=== PATIENT | male | born 1945 | race Caucasian/White ===

== ENCOUNTER → 2017-06-15 | Outpatient (CLI) | payer OTHER | LOC: FIMAGING 15:02 | PROVIDERS: ATTEND Pain Medicine Interventional Pain Medicine | DX: M51.37 Other intervertebral disc degeneration, lumbosacral region (principal); M48.061 Spinal stenosis, lumbar region without neurogenic claudication ==

== ENCOUNTER → 2017-08-10 | Outpatient (CLI) | payer OTHER | LOC: CIMAGING 12:49 | PROVIDERS: ATTEND Pain Medicine Interventional Pain Medicine | DX: M25.552 Pain in left hip (principal); M16.12 Unilateral primary osteoarthritis, left hip; G89.4 Chronic pain syndrome; Z79.891 Long term (current) use of opiate analgesic; Z85.528 Personal history of other malignant neoplasm of kidney; Z96.641 Presence of right artificial hip joint | CPT/HCPCS: 73521-PO ==

== ENCOUNTER → 2017-10-18 | Outpatient (CLI) | payer OTHER | LOC: FIMAGING 08:42 | PROVIDERS: ATTEND Pain Medicine Interventional Pain Medicine | DX: M25.861 Other specified joint disorders, right knee (principal); M25.862 Other specified joint disorders, left knee; M16.9 Osteoarthritis of hip, unspecified; I10 Essential (primary) hypertension; G47.10 Hypersomnia, unspecified; G89.4 Chronic pain syndrome; N50.9 Disorder of male genital organs, unspecified; M96.1 Postlaminectomy syndrome, not elsewhere classified; F11.20 Opioid dependence, uncomplicated; M48.061 Spinal stenosis, lumbar region without neurogenic claudication; M12.9 Arthropathy, unspecified; M51.37 Other intervertebral disc degeneration, lumbosacral region; G47.30 Sleep apnea, unspecified; Z96.641 Presence of right artificial hip joint; Z79.891 Long term (current) use of opiate analgesic ==

== ENCOUNTER 2018-01-12 18:25 | Emergency (ER) | payer OTHER ==
--- NOTE | 2018-01-12 18:52 | CPEKG ---
Heart Rate: 83 RR Interval: 723 P-R Interval: 268 QRSD Interval: 152 QT Interval: 388 QTC Interval: 456 P [place]: 243 QRS [place]: -99 T Wave [place]: 68 EKG Severity - ABNORMAL ECG - EKG Impression: SINUS OR ECTOPIC ATRIAL RHYTHM EKG Impression: VENTRICULAR TRIGEMINY EKG Impression: FIRST DEGREE AV BLOCK EKG Impression: RBBB AND LAFB Electronically Signed By: Saira Ross 12-Jan-2018 23:01:39
--- NOTE | 2018-01-12 19:32 | EDPHY ---
H & P Stated Complaint: FALL WEDNESDAY R LOW BACK AND SCIATIC PAIN Time Seen by Provider: 01/12/18 18:48 HPI/ROS: CHIEF COMPLAINT: Right-sided back pain HISTORY OF PRESENT ILLNESS: 72-year-old male presents after a fall with right- sided back pain. 2 nights ago he got out of bed to go to the bathroom. His left foot was numb transiently and he tripped and fell forward, striking his right side on an object. Since then he has had right-sided lower back pain. The pain is mild to moderate and increases with change in position and bending over. He also injured his left ankle. He saw a physical therapist for his left ankle today and had it taped. No pain in his left ankle now. Denies rapid heart rate, dizziness, chest pain, abdominal pain, shortness of breath. REVIEW OF SYSTEMS: complete 10 point ROS negative except at noted in the HPI - Personal History Current Tetanus/Diphtheria Vaccine: Yes - Medical/Surgical History Hx Asthma: No Hx Chronic Respiratory Disease: Yes Hx Diabetes: No Hx Cardiac Disease: Yes Hx Renal Disease: Yes Hx Cirrhosis: No Hx Alcoholism: No Hx HIV/AIDS: No Hx Splenectomy or Spleen Trauma: Yes Other PMH: right nephrectomy, BACK SURG, COPD, CARDIAC STENTS - Social History Smoking Status: Former smoker Drug Use: None - Physical Exam Exam: General Appearance: Alert, pleasant Eyes: Pupils equal and round, no conjunctival pallor or injection ENT, Mouth: Mucous membranes moist Neck: Normal inspection Respiratory: Lungs are clear to auscultation Cardiovascular: Regular rate and rhythm Gastrointestinal: Abdomen is soft and nontender Back: Point tenderness over the right upper lumbar paraspinous area, ecchymosis over the right lower posterior ribs Neurological: A&O, nonfocal, normal gait Skin: Warm and dry Extremities: Normal inspection, tape on the left ankle and calf Psychiatric: Mood and affect normal Constitutional: Initial Vital Signs Temperature (C) 36.5 C 01/12/18 18:38 Heart Rate 146 H 01/12/18 18:38 Respiratory Rate 20 01/12/18 18:38 Blood Pressure 97/84 H 18 18:38 O2 Sat (%) 95 01/12/18 18:38 O2 Delivery Mode Room Air Allergies/Adverse Reactions: atorvastatin calcium [From Lipitor] Allergy (Mild, Verified 01/12/18 18:37) Home Medications: Medication Instructions Recorded Aspirin [Aspirin 81mg (*)] 81 mg PO DAILY 07/02/12 Furosemide [Lasix 20 MG (*)] 20 mg PO DAILY 07/02/12 Levothyroxine [Synthroid 100 mcg 100 mcg PO DAILY06 07/02/12 (*)] Lisinopril [Zestril 10 mg (*)] 10 mg PO DAILY 07/02/12 Rosuvastatin Calcium [Crestor] 5 mg PO DAILY 07/02/12 Potassium Chloride [K-Tab ER] 10 meq PO MOWEFR #0 07/07/12 oxyCODONE IR [Oxycodone Ir (*)] 10 - 20 mg PO Q3 PRN #0 tab 07/07/12 Lisinopril 02/07/16 MORPHINE SULFATE 30 mg PO Q8 02/07/16 Medical Decision Making - Diagnostics EKG Interpretation: EKG interpreted by me reveals first-degree AV block, rate 83, right bundle branch block, PVCs. Imaging Results: Chest X-Ray 01/12/18 19:28 Impression: No active cardiopulmonary disease seen. Lumbar Spine X-Ray 01/12/18 19:28 Impression: 1. No change in degenerative disk disease involving the lumbar spine with hypertrophic osteophytes and moderate facet hypertrophy. 2. No change in anterior subluxation of L4 on L5. Imaging: I viewed and interpreted images myself ED Course/Re-evaluation: Initial VS noted. Prompt repeat VS unremarkable. Obs in ED x 3 hrs, VS stable. ?validity of initial VS vs dysrhythmia. EKG reveals RBBB. Patient states he was asymptomatic in triage, which leads me to suspect that the initial vital signs were invalid. However, could be secondary to transient dysrhythmia. He has no symptoms related to acute cardiopulmonary etiology or severe injury such as intra-abdominal hemorrhage. He understands my concern and will return for dizziness, fainting, chest pain, shortness of breath or any new concerns. X-rays revealed no evidence of fracture or pneumothorax. Clinical presentation consistent with muscular strain/contusion. He ambulated throughout the emergency department with a steady gait. He is on chronic narcotics and will take pain medicine as needed at home. Safe and stable for discharge home. Warning signs discussed. Differential Diagnosis: Differential diagnosis includes though it is not limited to fracture, intracranial hemorrhage, pneumothorax, hemothorax, intra-abdominal hemorrhage. - Data Points Laboratory Results: Laboratory Results 01/12/18 19:50 01/12/18 19:50 Medications Given: Discontinued Medications Miscellaneous Medication (Icy Hot Lidocaine/Menthol 4%/1% Patch) 1 patch TD EDNOW ONE Stop: 01/12/18 21:36 Last Admin: 01/12/18 21:38 Dose: 1 patch Departure - Departure Disposition: Home, Routine, Self-Care Clinical Impression: Low back strain Qualifiers: Encounter type: initial encounter Qualified Code(s): S39.012A - Strain of muscle, fascia and tendon of lower back, initial encounter Condition: Good Instructions: Low Back Strain (ED) Additional Instructions: Use a lidocaine patch as directed. Referrals: Jose Quintero, DO [Primary Care Provider] - 3-4 days, if not improved
[2018-01-12 20:13] LABS: PLATELET COUNT 145 10^3/uL (150-400)
[2018-01-12] MEDS ORDERED: LIDOCAINE 4%/MENTHOL 1% PATCH TD ONE (21:35)
[2018-01-12 21:43] VITALS: BP 108/77
[2018-01-13] MEDS ORDERED: PATCH REMOVAL 1 EA PATCH TD SCH (21:00)
== END 2018-01-12 21:41 | disposition home or self-care (01) ==
DX: S39.012A Strain of muscle, fascia and tendon of lower back, initial encounter (principal); J44.9 Chronic obstructive pulmonary disease, unspecified; Z79.82 Long term (current) use of aspirin; Z87.891 Personal history of nicotine dependence; W01.198A Fall on same level from slipping, tripping and stumbling with subsequent striking against other object, initial encounter

== ENCOUNTER → 2018-06-02 | Outpatient (CLI) | payer OTHER | LOC: FIMAGING 15:32 | PROVIDERS: ATTEND Family Medicine | DX: M17.12 Unilateral primary osteoarthritis, left knee (principal); M16.12 Unilateral primary osteoarthritis, left hip ==

== ENCOUNTER 2018-12-01 18:29 | Emergency (ER) | payer OTHER ==
--- NOTE | 2018-12-01 19:53 | EDPHY ---
General Time Seen by Provider: 12/01/18 18:46 Narrative: CLINICAL IMPRESSION: Left hip pain ASSESSMENT/PLAN: 73-year-old male presents to the emergency department 4 days after falling on his left hip with complaints of persistent pain. Patient tripped on a wire in his home, was able to get himself up and has been ambulating with a cane. He has had prior bilateral hip replacements performed by an orthopedic surgeon in [place] and was unable to get an appointment there. He did also strike his right knee but complains of no pain. X-rays of the left hip interpreted by myself with no obvious fracture or hardware displacement. No open wounds, contusion, and distal neurovascular exam is intact. No complaints of left femur or knee pain and exam findings are reassuring. Patient was advised to follow up with his primary orthopedic provider. Warning signs return to ED sooner discussed in discharge. DIFFERENTIAL DX: Differential includes but not limited to acute fracture, strain/sprain, joint dislocation, soft tissue contusion ED COURSE: 7:45 p.m.: Preliminary review of x-rays by myself shows no obvious fracture or hardware displacement. Patient has been ambulatory on the leg without pain. His primary surgeon is in [place]. Will plan for outpatient follow-up. CHIEF COMPLAINT: Left hip pain HPI: 73-year-old male presents to the emergency department 4 days after a ground level fall to the left hip. Patient reports he tripped on a cord in his home causing him to land on his right knee and left hip. He did not hit his head or have loss of consciousness. He was able to get up and has been ambulatory using a cane. He reports a history of bilateral hip replacements, the most recent being the left hip. This was performed by an orthopedic surgeon in [place]. He reports no buttock pain, upper leg pain, knee pain or ankle pain. He has an abrasion to the right knee but reports no difficulty with movement and no pain with ambulation. He is here requesting an x-ray to make sure he did not break anything. PAST MEDICAL HISTORY: See nurse triage note Pertinent Past Surgical History: Bilateral hip replacements Social History: See nurse triage REVIEW OF SYSTEMS: All other systems negative Constitutional: No fever, no chills Musculoskeletal: No deformity, + joint pain Skin: No rashes, color change or open wounds. Neurological: No sensory loss or weakness. PHYSICAL EXAM: General Appearance: Alert, oriented, obese, appropriate for age, cooperative, NAD, well hydrated, non-toxic appearing, mildly hypertensive no hypoxia. Neurological: Alert and oriented x 3, normal sensation and strength of extremities Skin: Warm, dry, no rashes, no nodules on palpation. Musculoskeletal: Mild reproducible pain along the anterior aspect of the left hip. No contusion or swelling. No incision site redness or dehiscence. No pain to palpation over the greater trochanter or ischium. No pain along the left femur, knee, tib-fib or ankle. Distal neurovascular exam is intact. No pain with internal or external rotation of the hip and patient is ambulatory with a cane. MEDICAL DECISION MAKING: Patient was seen independently. Secondary supervising physician at time of evaluation was Arminda Ross. Diagnosis: Left hip pain. New, requires workup Summary: See assessment and plan for summary of ED visit Independent visualization of images, tracing, or specimens yes. Patient Progress: Stable for discharge. - Diagnostics Imaging Results: Imaging Impressions Hip X-Ray 12/01/18 18:42 Impression: Anatomic alignment of bilateral hip arthroplasties, with no evidence of hardware failure or acute osseous abnormality. - History Smoking Status: Former smoker - Objective Vital Signs: Initial Vital Signs Temperature (C) 36.7 C 12/01/18 18:40 Heart Rate 71 12/01/18 18:40 Respiratory Rate 16 12/01/18 18:40 Blood Pressure 136/84 H 12/01/18 18:40 O2 Sat (%) 96 12/01/18 18:40 O2 Delivery Mode Room Air Allergies/Adverse Reactions: atorvastatin calcium [From Lipitor] Allergy (Mild, Verified 12/01/18 18:39) Home Medications: Medication Instructions Recorded Aspirin [Aspirin 81mg (*)] 81 mg PO DAILY 07/02/12 Furosemide [Lasix 20 MG (*)] 20 mg PO DAILY 07/02/12 Levothyroxine [Synthroid 100 mcg 100 mcg PO DAILY06 07/02/12 (*)] Lisinopril [Zestril 10 mg (*)] 10 mg PO DAILY 07/02/12 Rosuvastatin Calcium [Crestor] 5 mg PO DAILY 07/02/12 Potassium Chloride [K-Tab ER] 10 meq PO MOWEFR #0 07/07/12 oxyCODONE IR [Oxycodone Ir (*)] 10 - 20 mg PO Q3 PRN #0 tab 07/07/12 Lisinopril 02/07/16 MORPHINE SULFATE 30 mg PO Q8 02/07/16 Departure - Departure Disposition: Home, Routine, Self-Care Clinical Impression: Left hip pain Condition: Good Instructions: Hip Pain (ED) Additional Instructions: DISCHARGE INSTRUCTIONS FROM YOUR DOCTOR Thank you for visiting our emergency department today. You were treated by a physician human resources office assistant today and your case was reviewed with our ED Attending physician. Please keep in mind that discharge from the emergency department does not mean that there is nothing wrong - it simply means that we have not identified an emergency condition that requires further evaluation or treatment in the hospital. You should always plan to follow up with primary care for re- evaluation of your condition in the next 2-3 days. If you have been referred to a specialist, please call as soon as possible (today or tomorrow) to schedule your follow up appointment at the appropriate time. WE SEE NO OBVIOUS SIGN OF FRACTURE OR HARDWARE DISPLACEMENT ON THE X-RAYS OF YOUR HIP. PLEASE CONTACT HER PRIMARY ORTHOPEDIC PROVIDER IN [place] FOR A FOLLOW -UP APPOINTMENT. AVOID ACTIVITIES THAT EXACERBATE YOUR PAIN. USE HOME PAIN MEDICATIONS NEEDED. RETURN TO THE EMERGENCY DEPARTMENT FOR WORSENING PAIN, LOW BACK PAIN, BOWEL OR BLADDER INCONTINENCE, NUMBNESS TO YOUR GROIN, URINARY RETENTION, NUMBNESS OR LOSS OF SENSATION TO THE LEG, OR ANY OTHER CONCERN. People present with illnesses and injuries in different ways, and it is always possible that we have missed something. You may always return for re-evaluation if symptoms worsen or if they are not improving or if you develop new/different symptoms. Again, thank you for choosing our emergency department. We hope that you feel better. Referrals: Jose Quintero, DO [Primary Care Provider] - 2-3 days, call for appt.
[2018-12-01 20:10] VITALS: BP 137/81
== END 2018-12-01 20:08 | disposition home or self-care (01) ==
DX: M25.552 Pain in left hip (principal); W01.0XXA Fall on same level from slipping, tripping and stumbling without subsequent striking against object, initial encounter; Y92.008 Other place in unspecified non-institutional (private) residence as the place of occurrence of the external cause; Z96.643 Presence of artificial hip joint, bilateral